=== PATIENT | female | born 1950 | race African-American/Black ===

== ENCOUNTER 2018-07-24 15:06 | Inpatient (IN) | payer BC, MEDICAID, MEDICARE ==
[2018-07-24] VITALS (9 sets, daily range): BP systolic 129–142; BP diastolic 52–65
[~2018-07-24] VITALS: Ht 175.3 cm; Wt 126.1 kg
[~2018-07-24 15:06] MED LIST: AMLO10TA80 PO; ATOR40TA70 PO; BAYER ASPIRIN PO; GABA-531 PO; OLME40TA11 PO; TRAM50TA3 PO; [UNRECOGNIZED DRUG - OTHER] SQ
[2018-07-24 15:45] LABS: BG BASE EXCESS 3.5 mmol/L (-2.0-2.0); BG CARBOXYHEMOGLOBIN 1.2 % (0.5-1.5); BG FRACTION INSPIRED OXYGEN 21; BG HCO3 ACT 26.1 mmol/L (22.0-26.0); BG METHEMOGLOBIN 0.2 % (0.0-1.5); BG OXYHEMOGLOBIN 96.6 % (94.0-97.0); BG PCO2 30.3 mmHg (35.0-45.0); BG PH 7.553 (7.350-7.450); BG PO2 111.3 mmHg (75.0-100.0); BG SAMPLE SITE RIGHT RADIAL; BG TOTAL HEMOGLOBIN 5.9 g/dL (12.0-18.0); BG VENT MODE ROOM AIR
[2018-07-24 16:37] LABS: BASOPHILS % 0.6 % (0.0-2.0); EOSINOPHILS % 2.9 % (0.0-5.0); LYMPHOCYTES % 18.2 % (20.0-50.0); MEAN CORPUSCULAR HEMOGLOBIN 32.7 pg (28.0-32.0); MEAN CORPUSCULAR VOLUME 100.4 fL (81.0-99.0); MEAN PLATELET VOLUME 8.9 fl (7.4-10.4); MONOCYTES % 9.9 % (2.0-8.0); NEUTROPHILS % 68.4 % (40.0-76.0); PLATELET 220 x1000/uL (130-400); RED CELL DISTRIBUTION WIDTH 16.6 % (11.6-14.6)
[2018-07-24 16:40] LABS: HEMATOCRIT. 17.1 % (36.0-48.0); HEMOGLOBIN. 5.6 g/dL (12.0-16.0)
[2018-07-24 16:44] LABS: CHLORIDE 100 mEq/L (98-107)
[2018-07-24 16:45] LABS: PARTIAL THROMBOPLASTIN TIME 24.9 sec (23.4-31.0); PROTHROMBIN TIME 10.4 sec (9.1-11.1)
[2018-07-24 16:53] LABS: PHOSPHORUS 2.8 mg/dL (2.5-4.9)
[2018-07-24 17:35] LABS: TOTAL IRON BINDING CAPACITY 216 ug/dL (250-450)
[2018-07-24] MEDS: AMLODIPINE 5MG TABLET PO SCH (21:00)
[2018-07-24] MEDS ORDERED: TRAMADOL 50MG TABLET PO PRN (21:30)
[2018-07-24] MEDS ORDERED: TEMAZEPAM 15MG CAPSULE PO PRN (21:30)
[2018-07-24] MEDS ORDERED: ATROPINE SULFATE 1MG/ML VIAL IV PRN (21:45)
[2018-07-24 23:59] LABS: MEAN CORPUSCULAR VOLUME 98.5 fL (81.0-99.0); PLATELET 200 x1000/uL (130-400); RED BLOOD CELL COUNT 2.07 mill/uL (4.2-5.4)
[2018-07-25] VITALS (30 sets, daily range): BP systolic 133–168; BP diastolic 44–94
[2018-07-25 00:10] LABS: HEMATOCRIT 20.4 % (36.0-48.0); HEMOGLOBIN 6.6 g/dL (12.0-16.0)
[2018-07-25] MEDS ORDERED: INFLUENZA VIRUS VACCINE(AFLURIA) 0.5ML SYR IM ONE (08:00)
[2018-07-25] MEDS: SEVELAMER CARBONATE 800 MG TABLET PO SCH ×3 (08:20→18:05)
[2018-07-25] MEDS: AMLODIPINE 5MG TABLET PO SCH ×2 (09:00→21:25)
[2018-07-25] MEDS ORDERED: PANTOPRAZOLE SODIUM 40 MG/VIAL IV SCH (09:00)
[2018-07-25] MEDS: FOLIC ACID/VITAMIN B COMP W-C TABLET PO SCH (09:00)
[2018-07-25] MEDS: PANTOPRAZOLE SODIUM 40 MG/VIAL IV SCH (09:55)
[2018-07-25] MEDS ORDERED: DEXTROSE 50% WATER 50ML SYRINGE IV PRN (11:15)
[2018-07-25 11:51] LABS: BASOPHILS % 0.4 % (0.0-2.0); EOSINOPHILS % 3.9 % (0.0-5.0); HEMATOCRIT. 26.1 % (36.0-48.0); HEMOGLOBIN. 8.8 g/dL (12.0-16.0); LYMPHOCYTES % 14.2 % (20.0-50.0); MEAN CORPUSCULAR HEMOGLOBIN 32.6 pg (28.0-32.0); MEAN CORPUSCULAR VOLUME 96.9 fL (81.0-99.0); MEAN PLATELET VOLUME 8.7 fl (7.4-10.4); MONOCYTES % 9.6 % (2.0-8.0); NEUTROPHILS % 71.9 % (40.0-76.0); PLATELET 202 x1000/uL (130-400); RED BLOOD CELL COUNT 2.69 mill/uL (4.2-5.4); RED CELL DISTRIBUTION WIDTH 16.3 % (11.6-14.6)
[2018-07-25] MEDS: BLOOD SUGAR DIAGNOSTIC STRIP TEST SCH ×3 (11:54→21:30)
[2018-07-25] MEDS ORDERED: BLOOD SUGAR DIAGNOSTIC STRIP TEST SCH (12:50)
[2018-07-25] MEDS: INSULIN LISPRO 100 UNITS/ML SUBCUT SCH ×3 (13:20→21:00)
[2018-07-25] MEDS: ATORVASTATIN CALCIUM 40MG TABLET PO SCH (21:25)
[2018-07-26] VITALS (40 sets, daily range): BP systolic 117–184; BP diastolic 43–95
[2018-07-26] MEDS: ALBUTEROL (0.083%) 2.5MG/3ML NEB HHN SCH ×4 (01:24→21:04)
[2018-07-26 05:17] LABS: HEMATOCRIT 26.1 % (36.0-48.0); HEMOGLOBIN 8.6 g/dL (12.0-16.0)
[2018-07-26] MEDS: BLOOD SUGAR DIAGNOSTIC STRIP TEST SCH ×4 (07:50→21:43)
[2018-07-26] MEDS: INSULIN LISPRO 100 UNITS/ML SUBCUT SCH ×4 (08:20→21:00)
[2018-07-26] MEDS: SEVELAMER CARBONATE 800 MG TABLET PO SCH ×3 (08:20→18:20)
[2018-07-26] MEDS: AMLODIPINE 5MG TABLET PO SCH ×2 (09:00→21:44)
[2018-07-26] MEDS: FOLIC ACID/VITAMIN B COMP W-C TABLET PO SCH (09:00)
[2018-07-26] MEDS: PANTOPRAZOLE SODIUM 40 MG/VIAL IV SCH (09:59)
[2018-07-26] MEDS: CHLORHEXIDINE GLUCONATE 4% EXTERNAL USE TOP SCH (10:15)
[2018-07-26] MEDS ORDERED: GELATIN SPONGE,ABSORBABLE 12-7MM SPONGE ONE (16:06)
[2018-07-26] MEDS ORDERED: THROMBIN (BOVINE) 5000 UNITS/VIAL TOP ONE (16:07)
[2018-07-26] MEDS ORDERED: LIDOCAINE HCL 1% 20ML VIAL (Pyxis) INJ ONE (16:07)
[2018-07-26] MEDS ORDERED: BUPIVACAINE HCL 0.5% (5MG/ML) 50ML ONE (16:07)
[2018-07-26] MEDS ORDERED: HEPARIN SODIUM 1,000 UNIT/1ML VIAL IV ONE (16:08)
[2018-07-26] MEDS ORDERED: CLINDAMYCIN 900 MG in DEXTROSE 5% WATER 50 ML IV NR (16:30)
[2018-07-26] MEDS ORDERED: FENTANYL CITRATE/PF 50MCG/ML 2ML VIAL ONE (16:37)
[2018-07-26] MEDS ORDERED: MIDAZOLAM HCL 2 MG/2 ML VIAL ONE (16:37)
[2018-07-26] MEDS ORDERED: PROPOFOL 200MG/20ML VIAL IV ONE (16:37)
[2018-07-26] MEDS ORDERED: CEFAZOLIN SODIUM 1000MG/VIAL ONE (16:40)
[2018-07-26] MEDS ORDERED: IODIXANOL 320MG/ML 200ML BOTTLE ONE (17:31)
[2018-07-26] MEDS ORDERED: GENTAMICIN SULF 40MG/ML 2ML VIAL ONE (17:31)
[2018-07-26] MEDS ORDERED: SKIN ADHESIVE 0.7 GM EA TOP ONE (18:52)
[2018-07-26] MEDS ORDERED: BACITRACIN 50,000 UNITS/VIAL ONE (18:54)
[2018-07-26] MEDS ORDERED: NORMAL SALINE 0.9% 10 ML SYR ONE (18:54)
[2018-07-26] MEDS: ATORVASTATIN CALCIUM 40MG TABLET PO SCH (21:44)
[2018-07-27] VITALS (25 sets, daily range): BP systolic 96–197; BP diastolic 37–98
[2018-07-27] MEDS: ALBUTEROL (0.083%) 2.5MG/3ML NEB HHN SCH ×3 (00:34→20:55)
[2018-07-27 05:37] LABS: BASOPHILS % 0.4 % (0.0-2.0); EOSINOPHILS % 0.5 % (0.0-5.0); HEMATOCRIT. 25.6 % (36.0-48.0); HEMOGLOBIN. 8.4 g/dL (12.0-16.0); LYMPHOCYTES % 10.3 % (20.0-50.0); MEAN CORPUSCULAR HEMOGLOBIN 32.4 pg (28.0-32.0); MEAN CORPUSCULAR VOLUME 99.2 fL (81.0-99.0); MEAN PLATELET VOLUME 9.3 fl (7.4-10.4); MONOCYTES % 9.9 % (2.0-8.0); NEUTROPHILS % 78.9 % (40.0-76.0); PLATELET 170 x1000/uL (130-400); RED BLOOD CELL COUNT 2.58 mill/uL (4.2-5.4); RED CELL DISTRIBUTION WIDTH 16.3 % (11.6-14.6)
[2018-07-27 05:48] LABS: PHOSPHORUS 4.4 mg/dL (2.5-4.9)
[2018-07-27] MEDS: BLOOD SUGAR DIAGNOSTIC STRIP TEST SCH ×4 (06:20→20:45)
[2018-07-27] MEDS: INSULIN LISPRO 100 UNITS/ML SUBCUT SCH ×4 (08:20→20:45)
[2018-07-27] MEDS ORDERED: CLONIDINE 0.1MG TABLET PO PRN (09:30)
[2018-07-27] MEDS: ACETAMINOPHEN 325MG TABLET PO PRN (09:33)
[2018-07-27] MEDS: PANTOPRAZOLE SODIUM 40 MG/VIAL IV SCH (09:33)
[2018-07-27] MEDS: FOLIC ACID/VITAMIN B COMP W-C TABLET PO SCH (09:34)
[2018-07-27] MEDS: SEVELAMER CARBONATE 800 MG TABLET PO SCH ×3 (09:34→17:20)
[2018-07-27] MEDS: CHLORHEXIDINE GLUCONATE 4% EXTERNAL USE TOP SCH (09:51)
[2018-07-27] MEDS: AMLODIPINE 5MG TABLET PO SCH ×2 (10:00→20:56)
[2018-07-27] MEDS ORDERED: VANCOMYCIN 1 G PREMIX 200 ML IV NR (13:00)
[2018-07-27] MEDS ORDERED: GENTAMICIN 120MG PREMIX 100 ML IV NR (13:00)
[2018-07-27] MEDS: IRON SUCROSE COMPLEX 100 MG/5 ML ML IV SCH (14:18)
[2018-07-27] MEDS: METOPROLOL TARTRATE 50MG TABLET PO SCH ×2 (14:27→20:56)
[2018-07-27 15:20] LABS: CLARITY URINE CLEAR (CLEAR); COLOR URINE YELLOW (YELLOW); KETONES URINE NEGATIVE (NEGATIVE); LEUKOCYTE ESTERASE URINE 1+ (NEGATIVE); NITRITE URINE NEGATIVE (NEGATIVE); OCCULT BLOOD URINE NEGATIVE (NEGATIVE); PH URINE >=9.0 (4.5-8.0); PROTEIN URINE 3+ (NEGATIVE); SPECIFIC GRAVITY URINE 1.013 (1.005-1.030); UROBILINOGEN URINE 0.2 E.U./dL (0.2-1.0)
[2018-07-27] MEDS: ATORVASTATIN CALCIUM 40MG TABLET PO SCH (20:55)
[2018-07-27] MEDS ORDERED: EPOETIN ALFA 10000UNITS/ML VIAL SUBCUT SCH (21:00)
[2018-07-28] VITALS (12 sets, daily range): BP systolic 116–157; BP diastolic 50–89
[2018-07-28] MEDS: ACETAMINOPHEN 325MG TABLET PO PRN (00:18)
[2018-07-28] MEDS: ALBUTEROL (0.083%) 2.5MG/3ML NEB HHN SCH ×4 (01:05→20:49)
[2018-07-28] MEDS: BLOOD SUGAR DIAGNOSTIC STRIP TEST SCH ×4 (06:31→20:36)
[2018-07-28 07:12] LABS: BASOPHILS % 0.3 % (0.0-2.0); EOSINOPHILS % 1.3 % (0.0-5.0); HEMATOCRIT. 23.9 % (36.0-48.0); MEAN CORPUSCULAR HEMOGLOBIN 32.6 pg (28.0-32.0); MEAN CORPUSCULAR VOLUME 97.8 fL (81.0-99.0); MONOCYTES % 12.3 % (2.0-8.0); NEUTROPHILS % 74.1 % (40.0-76.0); PLATELET 175 x1000/uL (130-400); RED BLOOD CELL COUNT 2.45 mill/uL (4.2-5.4); RED CELL DISTRIBUTION WIDTH 15.8 % (11.6-14.6)
[2018-07-28] MEDS: INSULIN LISPRO 100 UNITS/ML SUBCUT SCH ×4 (07:20→20:43)
[2018-07-28 07:21] LABS: GENTAMICIN RANDOM 3.3 ug/mL
[2018-07-28] MEDS: FOLIC ACID/VITAMIN B COMP W-C TABLET PO SCH (08:25)
[2018-07-28] MEDS: METOPROLOL TARTRATE 50MG TABLET PO SCH ×2 (08:25→20:43)
[2018-07-28] MEDS: IRON SUCROSE COMPLEX 100 MG/5 ML ML IV SCH (08:25)
[2018-07-28] MEDS: SEVELAMER CARBONATE 800 MG TABLET PO SCH ×3 (08:25→18:00)
[2018-07-28] MEDS: PANTOPRAZOLE SODIUM 40 MG/VIAL IV SCH (08:25)
[2018-07-28] MEDS: AMLODIPINE 5MG TABLET PO SCH ×2 (08:26→20:43)
[2018-07-28] MEDS: CHLORHEXIDINE GLUCONATE 4% EXTERNAL USE TOP SCH (08:37)
[2018-07-28] MEDS: ATORVASTATIN CALCIUM 40MG TABLET PO SCH (20:42)
[2018-07-29] VITALS (18 sets, daily range): BP systolic 115–157; BP diastolic 59–74
[2018-07-29] MEDS: ALBUTEROL (0.083%) 2.5MG/3ML NEB HHN SCH ×4 (01:07→21:02)
[2018-07-29] MEDS: BLOOD SUGAR DIAGNOSTIC STRIP TEST SCH ×4 (06:44→22:01)
[2018-07-29 07:25] LABS: BASOPHILS % 0.7 % (0.0-2.0); EOSINOPHILS % 4.5 % (0.0-5.0); HEMATOCRIT. 22.6 % (36.0-48.0); HEMOGLOBIN. 7.4 g/dL (12.0-16.0); LYMPHOCYTES % 11.3 % (20.0-50.0); MEAN CORPUSCULAR HEMOGLOBIN 32.4 pg (28.0-32.0); MEAN CORPUSCULAR VOLUME 98.7 fL (81.0-99.0); MEAN PLATELET VOLUME 8.9 fl (7.4-10.4); NEUTROPHILS % 70.5 % (40.0-76.0); PLATELET 181 x1000/uL (130-400); RED BLOOD CELL COUNT 2.29 mill/uL (4.2-5.4); RED CELL DISTRIBUTION WIDTH 15.5 % (11.6-14.6)
[2018-07-29] MEDS: INSULIN LISPRO 100 UNITS/ML SUBCUT SCH ×4 (08:00→21:00)
[2018-07-29] MEDS: CHLORHEXIDINE GLUCONATE 4% EXTERNAL USE TOP SCH (09:00)
[2018-07-29] MEDS: AMLODIPINE 5MG TABLET PO SCH ×2 (10:56→22:11)
[2018-07-29] MEDS: SEVELAMER CARBONATE 800 MG TABLET PO SCH ×3 (10:56→18:06)
[2018-07-29] MEDS: METOPROLOL TARTRATE 50MG TABLET PO SCH ×2 (10:57→22:11)
[2018-07-29] MEDS: PANTOPRAZOLE SODIUM 40 MG/VIAL IV SCH (10:57)
[2018-07-29] MEDS: IRON SUCROSE COMPLEX 100 MG/5 ML ML IV SCH (10:57)
[2018-07-29] MEDS: FOLIC ACID/VITAMIN B COMP W-C TABLET PO SCH (10:57)
[2018-07-29] MEDS ORDERED: BISACODYL 5MG TABLET PO NR (15:00)
[2018-07-29] MEDS ORDERED: METOCLOPRAMIDE 10MG/10 ML UDC PO NR (15:00)
[2018-07-29] MEDS: BISACODYL 5MG TABLET PO NR ×3 (15:36→23:54)
[2018-07-29] MEDS: METOCLOPRAMIDE 10MG/10 ML UDC PO NR ×3 (15:36→23:55)
[2018-07-29] MEDS: SORBITOL 70% SOLN 30ML PO NR ×3 (15:37→23:55)
[2018-07-29] MEDS ORDERED: SORBITOL 70% SOLN 30ML PO NR (20:00)
[2018-07-29 20:58] LABS: HEMATOCRIT 27.8 % (36.0-48.0); HEMOGLOBIN 9.1 g/dL (12.0-16.0)
[2018-07-29 21:05] LABS: INR 1.1; PROTHROMBIN TIME 10.7 sec (9.1-11.1)
[2018-07-29] MEDS: ATORVASTATIN CALCIUM 40MG TABLET PO SCH (22:10)
[2018-07-30] VITALS (10 sets, daily range): BP systolic 104–156; BP diastolic 48–72
[2018-07-30] MEDS: ALBUTEROL (0.083%) 2.5MG/3ML NEB HHN SCH ×2 (01:55→21:20)
[2018-07-30] MEDS: BLOOD SUGAR DIAGNOSTIC STRIP TEST SCH ×4 (06:44→21:37)
[2018-07-30] MEDS: INSULIN LISPRO 100 UNITS/ML SUBCUT SCH ×4 (07:20→21:00)
[2018-07-30] MEDS: SEVELAMER CARBONATE 800 MG TABLET PO SCH ×4 (07:20→18:50)
[2018-07-30 07:52] LABS: BASOPHILS % 0.6 % (0.0-2.0); EOSINOPHILS % 5.8 % (0.0-5.0); HEMATOCRIT. 30.7 % (36.0-48.0); MEAN CORPUSCULAR HEMOGLOBIN 31.1 pg (28.0-32.0); MEAN CORPUSCULAR VOLUME 95.6 fL (81.0-99.0); MONOCYTES % 11.9 % (2.0-8.0); NEUTROPHILS % 68.7 % (40.0-76.0); PLATELET 249 x1000/uL (130-400); RED BLOOD CELL COUNT 3.21 mill/uL (4.2-5.4); RED CELL DISTRIBUTION WIDTH 16.2 % (11.6-14.6)
[2018-07-30 08:06] LABS: INR 1.1; PARTIAL THROMBOPLASTIN TIME 31.9 sec (23.4-31.0); PROTHROMBIN TIME 10.8 sec (9.1-11.1)
[2018-07-30] MEDS: METOPROLOL TARTRATE 50MG TABLET PO SCH ×2 (08:19→21:43)
[2018-07-30] MEDS: FOLIC ACID/VITAMIN B COMP W-C TABLET PO SCH (08:19)
[2018-07-30] MEDS: AMLODIPINE 5MG TABLET PO SCH ×2 (08:20→21:42)
[2018-07-30] MEDS: IRON SUCROSE COMPLEX 100 MG/5 ML ML IV SCH (09:03)
[2018-07-30] MEDS: PANTOPRAZOLE SODIUM 40 MG/VIAL IV SCH (09:03)
[2018-07-30] MEDS: CHLORHEXIDINE GLUCONATE 4% EXTERNAL USE TOP SCH (09:04)
[2018-07-30] MEDS ORDERED: SODIUM CHLORIDE 0.9% 10ML VIAL ONE (12:53)
[2018-07-30] MEDS ORDERED: MIDAZOLAM HCL 5 MG/5 ML VIAL IV PRN (16:05)
[2018-07-30] MEDS ORDERED: SIMETHICONE 40 MG/0.6 ML 30ML ONE (16:06)
[2018-07-30] MEDS ORDERED: FENTANYL CITRATE/PF 50MCG/ML 2ML VIAL IV PRN (16:06)
[2018-07-30] MEDS ORDERED: FENTANYL CITRATE/PF 50MCG/ML 2ML VIAL ONE (16:07)
[2018-07-30] MEDS ORDERED: MIDAZOLAM HCL 5 MG/5 ML VIAL ONE (16:07)
[2018-07-30] MEDS: ATORVASTATIN CALCIUM 40MG TABLET PO SCH (21:42)
[2018-07-31] VITALS (9 sets, daily range): BP systolic 100–129; BP diastolic 52–71
[2018-07-31] MEDS: ALBUTEROL (0.083%) 2.5MG/3ML NEB HHN SCH (02:40)
[2018-07-31] MEDS: BLOOD SUGAR DIAGNOSTIC STRIP TEST SCH ×2 (06:37→12:30)
[2018-07-31 07:11] LABS: BASOPHILS % 0.8 % (0.0-2.0); EOSINOPHILS % 4.9 % (0.0-5.0); HEMATOCRIT. 27.9 % (36.0-48.0); HEMOGLOBIN. 9.3 g/dL (12.0-16.0); LYMPHOCYTES % 16.2 % (20.0-50.0); MEAN CORPUSCULAR HEMOGLOBIN 31.9 pg (28.0-32.0); MEAN CORPUSCULAR VOLUME 95.4 fL (81.0-99.0); MEAN PLATELET VOLUME 8.3 fl (7.4-10.4); MONOCYTES % 11.9 % (2.0-8.0); NEUTROPHILS % 66.2 % (40.0-76.0); PLATELET 245 x1000/uL (130-400); RED BLOOD CELL COUNT 2.92 mill/uL (4.2-5.4); RED CELL DISTRIBUTION WIDTH 16.1 % (11.6-14.6)
[2018-07-31] MEDS: INSULIN LISPRO 100 UNITS/ML SUBCUT SCH ×2 (07:20→12:20)
[2018-07-31] MEDS: CHLORHEXIDINE GLUCONATE 4% EXTERNAL USE TOP SCH (08:04)
[2018-07-31] MEDS: FOLIC ACID/VITAMIN B COMP W-C TABLET PO SCH (08:13)
[2018-07-31] MEDS: PANTOPRAZOLE SODIUM 40 MG/VIAL IV SCH (08:13)
[2018-07-31] MEDS: SEVELAMER CARBONATE 800 MG TABLET PO SCH ×2 (08:14→13:28)
[2018-07-31] MEDS: IRON SUCROSE COMPLEX 100 MG/5 ML ML IV SCH (08:14)
[2018-07-31] MEDS: METOPROLOL TARTRATE 50MG TABLET PO SCH (09:00)
[2018-07-31] MEDS: AMLODIPINE 5MG TABLET PO SCH (09:00)
== END 2018-07-31 16:38 | disposition home or self-care (01) | DRG 242 ==
LOC: ER 15:06 → CVICU 17:01 → EDBEDREQ 17:03 → ENRESERV 19:41 → 3WST 07-27 17:10
PROVIDERS: ADMIT Specialist; ATTEND Specialist
PROC: 30233N1 Transfusion of Nonautologous Red Blood Cells into Peripheral Vein, Percutaneous Approach (ICD-10-PCS; 2018-07-25)
PROC: B5171ZZ Fluoroscopy of Left Subclavian Vein using Low Osmolar Contrast (ICD-10-PCS; principal; 2018-07-26)
PROC: 0JH606Z Insertion of Pacemaker, Dual Chamber into Chest Subcutaneous Tissue and Fascia, Open Approach (ICD-10-PCS; 2018-07-26)
PROC: 02H63JZ Insertion of Pacemaker Lead into Right Atrium, Percutaneous Approach (ICD-10-PCS; 2018-07-26)
PROC: 02HK3JZ Insertion of Pacemaker Lead into Right Ventricle, Percutaneous Approach (ICD-10-PCS; 2018-07-26)
PROC: 5A2204Z Restoration of Cardiac Rhythm, Single (ICD-10-PCS; 2018-07-26)
PROC: 5A1D70Z Performance of Urinary Filtration, Intermittent, Less than 6 Hours Per Day (ICD-10-PCS; 2018-07-28)
PROC: 0DB68ZX Excision of Stomach, Via Natural or Artificial Opening Endoscopic, Diagnostic (ICD-10-PCS; 2018-07-30)
PROC: 0DBL8ZX Excision of Transverse Colon, Via Natural or Artificial Opening Endoscopic, Diagnostic (ICD-10-PCS; 2018-07-30)
DX: I49.5 Sick sinus syndrome (principal); K29.61 Other gastritis with bleeding; N18.6 End stage renal disease; I44.2 Atrioventricular block, complete; I13.2 Hypertensive heart and chronic kidney disease with heart failure and with stage 5 chronic kidney disease, or end stage renal disease; D62 Acute posthemorrhagic anemia; I48.4 Atypical atrial flutter; Z68.41 Body mass index [BMI] 40.0-44.9, adult; E11.40 Type 2 diabetes mellitus with diabetic neuropathy, unspecified; E78.5 Hyperlipidemia, unspecified; J45.909 Unspecified asthma, uncomplicated; M12.9 Arthropathy, unspecified; E11.22 Type 2 diabetes mellitus with diabetic chronic kidney disease; D63.1 Anemia in chronic kidney disease; D72.829 Elevated white blood cell count, unspecified; E05.90 Thyrotoxicosis, unspecified without thyrotoxic crisis or storm; E11.21 Type 2 diabetes mellitus with diabetic nephropathy; E11.36 Type 2 diabetes mellitus with diabetic cataract; F17.210 Nicotine dependence, cigarettes, uncomplicated; F32.9 Major depressive disorder, single episode, unspecified; E11.51 Type 2 diabetes mellitus with diabetic peripheral angiopathy without gangrene; E11.621 Type 2 diabetes mellitus with foot ulcer; L97.509 Non-pressure chronic ulcer of other part of unspecified foot with unspecified severity; E11.65 Type 2 diabetes mellitus with hyperglycemia; D63.8 Anemia in other chronic diseases classified elsewhere; G89.4 Chronic pain syndrome; I50.9 Heart failure, unspecified; K44.9 Diaphragmatic hernia without obstruction or gangrene; K64.8 Other hemorrhoids; M51.16 Intervertebral disc disorders with radiculopathy, lumbar region; Z80.3 Family history of malignant neoplasm of breast; Z99.2 Dependence on renal dialysis; Z82.49 Family history of ischemic heart disease and other diseases of the circulatory system; Z83.3 Family history of diabetes mellitus; Z90.710 Acquired absence of both cervix and uterus; Z88.0 Allergy status to penicillin; Z79.899 Other long term (current) drug therapy
CPT/HCPCS: 36415; 36430; 36600; 71045; 76000; 80048; 80170; 80202; 82375; 82728; 82805; 82962; 83540; 83550; 83735; 84100; 84443; 84484; 85014; 85018; 85027; 85044; 85049; 85384; 86850; 86900; 86920; 87070; 88305; 88312; 88313; 93005; 93306; 94640; 96374; 99291; A4565; A6261; C1785; C9113; J0690; J0885; J1580; J1644; J2250; J2704; J3010; J3370; J3490; J7040; J7050; J7060; J7611; J8597; P9016; Q9967